=== PATIENT | male | born 1965 | race Caucasian/White ===

== ENCOUNTER 2023-07-18 10:48 | Outpatient (CLI) | payer BC, SELFPAY | END 2023-07-18 10:49 | disposition home or self-care (01) | PROVIDERS: PCP Internal Medicine; Visit Provider Internal Medicine | DX: I71.20 Thoracic aortic aneurysm, without rupture, unspecified (principal); I35.1 Nonrheumatic aortic (valve) insufficiency | CPT/HCPCS: 93306 ==

== ENCOUNTER 2023-11-23 16:32 | Emergency (ER) | payer BC, SELFPAY ==
[2023-11-23 16:59] VITALS: BP 106/73; PULSE 110; RESP 18; TEMP 37.1; O2SAT 94; BMI 30.4
--- NOTE | 2023-11-23 17:39 | CRLHL7_ITS ---
For Patients: As a result of the Century Cures Act, medical imaging exams and procedure reports are released immediately into your electronic medical record. You may view this report before your referring provider. If you have questions, please contact your health care provider. INDICATION: Leg pain and swelling. TECHNIQUE: Ultrasound venous duplex lower left extremity. Compression venous exam was performed using bales-scale, color Doppler, and spectral Doppler analysis. COMPARISON: None. FINDINGS: Deep veins: Acute DVT in 1 of the 2 left peroneal veins. Remaining deep veins are patent. Superficial veins: Greater saphenous vein is fully compressible. Incidental 3.8 centimeter popliteal fossa cyst. IMPRESSION: Acute DVT in one of the two left peroneal veins. Remaining deep veins are patent. Case discussed with Ishmael Fisher at 7:22 p.m. on 11/23/2021. Dictated by Sánchez Jimenez MD @ 11/23/2023 7:23:19 PM (Electronically Signed)
--- NOTE | 2023-11-23 17:41 | ED.GENADULT ---
HPI - General Adult General Chief complaint: Extremity Pain/Injury, Lower Stated complaint: Open Heart Surger Nov 13, Left Leg Pain Time Seen by Provider: 11/23/23 17:32 History of Present Illness HPI narrative: This 58-year-old male comes in with the report of pain in his left lower extremity. He states that the pain is constant. He does not report any injury. He recently had a valve replacement and his heart 10 days ago and had aortic aneurysm repair. He began to feel pain on the medial posterior portion of his left knee in the last day or so. He does not report any shortness of breath. He is currently taking warfarin. Related Data Home Medications Medication Instructions Recorded Confirmed acetaminophen 500 mg capsule 1,000 mg PO Q6H PRN 11/21/23 11/23/23 aspirin 81 mg tablet,delayed 81 mg PO QDAY 11/21/23 11/23/23 release (Adult Aspirin Regimen) metoprolol tartrate 25 mg tablet 25 mg PO BID 11/21/23 11/23/23 Previous Rx's Medication Instructions Recorded warfarin 5 mg tablet 5 mg PO DAILY #60 tabs 11/21/23 oxycodone 5 mg tablet 5 mg PO Q6H #30 tabs 11/22/23 apixaban 5 mg (74 tabs) tablets in See Rx Instructions PO .COMPLEX 11/23/23 a dose pack (Eliquis DVT-PE Treat #74 ea 30D Start) Allergies Allergy/AdvReac Type Severity Reaction Status Date / Time Quinolones Allergy Mild Itching Verified 11/23/23 17:07 ciprofloxacin [From Cipro] Allergy itchy Verified 11/23/23 17:07 Review of Systems Status of ROS: Reports: 10 or more systems reviewed and unremarkable except as noted in History and below Narrative: Constitutional: No fevers, no weight gain or loss. Eyes: No discharge. No vision changes. HENT: No congestion, no sore throat, no ear pain. Cardiovascular: No chest pain, no palpitations. Respiratory: No shortness of breath, no wheezes, no cough. Gastrointestinal: No abdominal pain, no vomiting, no diarrhea. Genitourinary: No dysuria, no hematuria. Musculoskeletal: Normal range of motion. Skin: No rashes, no pruritis. Neurological: No dizziness, weakness, sensory change, speech change. Endo/Heme/Allergies: No bruising or bleeding. No polydipsia. Pysch: no suicidality, no anxiety, no insomnia. All other systems reviewed and are negative. [facility] Medical History (Updated 11/23/23 @ 19:13 by Ishmale Fisher MD) History of kidney stones (2002) ?Z87.442 - Personal history of urinary calculi (ICD-10) Aortic regurgitation ?I35.1 - Nonrheumatic aortic (valve) insufficiency (ICD-10) Thoracic aortic aneurysm ?I71.20 - Thoracic aortic aneurysm, without rupture, unspecified (ICD-10) Surgical History (Updated 11/21/23 @ 16:58 by Arian Krishnan MD) H/O aortic valve replacement ?Z95.2 - Presence of prosthetic heart valve (ICD-10) History of hand surgery (1994) ?Z98.890 - Other specified postprocedural states (ICD-10) Social History Little interest or pleasure in doing things: not at all Feeling down, depressed, or hopeless: not at all Exam Narrative: Exam Narrative: Constitutional: Well-developed, well-nourished, no acute distress. HEENT: Normocephalic, atraumatic. Neck: Normal range of motion. Nontender. Supple. Heart: Regular. No murmurs. Normal rate. Intact distal pulses. Lungs: Clear to auscultation. No chest discomfort. No wheezes, rhonchi, or rales. Abdomen: Normal bowel sounds. Nontender. No rebound tenderness. Genitalia: Deferred. Back: No midline tenderness. Normal range of motion. Extremities: No injury. Diffuse pain in the left leg in the medial aspect of the knee area. No sign of swelling or ecchymosis. Range of motion is intact. Skin: Intact. No rash. Warm. No erythema or pallor. Neurologic: No altered sensation. No weakness. Alert and oriented. Psychiatric: No suicidality. No anxiety or depression. No insomnia. Nursing notes and vitals signs are reviewed. Const: Vital Signs, click to edit/add: Vital Signs - 24 hr 11/23/23 16:59 Temperature 98.7 F Pulse Rate [Right Pulse Oximeter] 110 H Respiratory Rate 18 Blood Pressure [Ri ght Upper Arm] 106/73 Pulse Oximetry 94 Oxygen Delivery Me thod Room Air Course Vital Signs Vital signs: Initial Vital Signs Temperature 98.7 F 11/23/23 16:59 Temperature Source Temporal Artery Scan 11/23/23 16:59 Pulse Rate 110 H 11/23/23 16:59 Pulse Rhythm Regular 11/23/23 16:59 Respiratory Rate 18 11/23/23 16:59 Blood Pressure 106/73 11/23/23 16:59 Blood Pressure Mean 84 11/23/23 16:59 Blood Pressure Position Sitting 11/23/23 16:59 Pulse Oximetry 94 11/23/23 16:59 Oxygen Delivery Method Room Air 11/23/23 16:59 Vital Signs Temperature 98.7 F 11/23/23 16:59 Pulse Rate 110 H 11/23/23 16:59 Respiratory Rate 18 11/23/23 16:59 Blood Pressure 106/73 11/23/23 16:59 Pulse Oximetry 94 11/23/23 16:59 Oxygen Delivery Method Room Air 11/23/23 16:59 Temperature 98.7 F 11/23/23 16:59 Pulse Rate 110 H 11/23/23 16:59 Respiratory Rate 18 11/23/23 16:59 Blood Pressure 106/73 11/23/23 16:59 Pulse Oximetry 94 11/23/23 16:59 Oxygen Delivery Method Room Air 11/23/23 16:59 Medical Decision Making MDM Narrative Medical decision making narrative: This patient comes in reporting some pain in the medial aspect of his left knee. He does not report any particular injury event but did have recent surgery. He has started on Coumadin and was taking 5 mg daily. Two days ago his INR was checked and he was called by the [facility] and instructed to take 10 mg tablets on Tuesdays and Fridays with 5 mg on the other days of the week. This was because his INR returned at 2.2. He has a mechanical heart valve so he was a bit subtherapeutic. Ultrasound of the lower extremity does show evidence of a clot in the left lower leg in 1 of the 2 peroneal veins. He also has a Nicolas cyst that is located more where he is describing pain. The brake operator helper reports that the clot does not look fresh like it was just recently occurring. This patient started Coumadin after having his surgery and it was during this time where was likely that he did develop a clot in his leg. The patient is likely close to therapeutic at this time. An INR is drawn but the patient does not want to wait for results. I advised him to continue with current plans and to follow-up with his cold press loader. I did provide a prescription for Eliquis in case his cold press loader says he should switch to this. The patient does have interest in taking something like this which has less variability in its protective benefit. The patient arrived with heart rate at 110 beats per minute but at the time of my check his heart rate was in normal range at rest at about 70 beats per minute. There is some possibility that he could have pulmonary embolism. I did discuss this possibility with the patient and in a process of shared decision making no further imaging was done seeing that he has normal vital signs without tachycardia or hypoxia. Additionally he is currently taking Coumadin. Discharge Plan Discharge Clinical Impression: Nicolas's cyst of knee, Deep venous thrombosis Patient Disposition: Home, Self-Care Condition: Stable Additional Instructions: Follow-up with primary physician or cold press loader for ongoing management. Continue with Coumadin and recheck INR as scheduled and needed. Prescriptions: New Eliquis DVT-PE Treat 30D Start 5 mg (74 tabs) tablets,dose pack See Rx Instructions PO .COMPLEX Qty: 74 0RF Rx Instructions: orally per package directions No Action metoprolol tartrate 25 mg tablet 25 mg PO BID acetaminophen 500 mg capsule 1,000 mg PO Q6H PRN aspirin [Adult Aspirin Regimen] 81 mg tablet,delayed release (DR/EC) 81 mg PO QDAY warfarin 5 mg tablet 5 mg PO DAILY Qty: 60 0RF Rx Instructions: 5 mg daily except 10 mg on Friday and Friday oxycodone 5 mg tablet 5 mg PO Q6H Qty: 30 0RF Follow Up/Referrals: Gurpreet Telles MD [Primary Care Provider] - Stand Alone Forms: [employer] Info Instructions
[2023-11-23 19:37] LABS: INR 1.79 (0.91-1.10); Prothrombin Time 22.1 Seconds
== END 2023-11-23 19:22 | disposition home or self-care (01) ==
PROVIDERS: Emergency Provider Emergency Medicine Emergency Medical Services; PCP Internal Medicine
DX: I82.402 Acute embolism and thrombosis of unspecified deep veins of left lower extremity (principal); M71.22 Synovial cyst of popliteal space [Baker], left knee
CPT/HCPCS: 36415; 85610; 93971; 99284

== ENCOUNTER 2023-11-25 10:09 | Outpatient (CLI) | payer BC, SELFPAY | END 2023-11-25 10:10 | disposition home or self-care (01) | LOC: NFLDREF 10:11 | PROVIDERS: PCP Internal Medicine; Visit Provider Internal Medicine | DX: I82.409 Acute embolism and thrombosis of unspecified deep veins of unspecified lower extremity (principal) | CPT/HCPCS: 85610 ==

== ENCOUNTER 2024-07-02 11:31 | Outpatient (CLI) | payer BC, SELFPAY ==
--- OUTSIDE RECORDS SUMMARY | 2024-07-04 03:53 | XMS_ITS | Encounter Summary ---
Author Organization [facility] Address [address] [place] [id number] Care Team Providers Care Caretaker Grounds Name Role Phone [facility] Primary Care Provider Encounter Details Date Type Department Care Team (Latest Contact Info) Description 05/14/2024 Travel Social History Tobacco Use Types Packs/Day Years Used Date Smoking Tobacco: Never Assessed Adolescent Education Answer Date Record ed Getting School Help Needed Not on file 05/14 Sex and Gender Information Value Date Recorded Sex Assigned at Not on file Gender Identity Not on file Sexual Orientation Not on file documented as of this encounter Plan of Treatment Not on file documented as of this encounter Visit Diagnoses Not on filedocumented in this encounter Care Teams Caretaker Grounds Relationship Specialty Start Date End Date [facility] [address] [place] [address] PCP - General 05/14/24 documented as of this encounter
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
--- OUTSIDE RECORDS SUMMARY | 2024-07-04 03:53 | XMS_ITS | Encounter Summary ---
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 insertion, Starting on Fri05/14/24 at 2125, Apply at least 30 minutes prior to VAD insertion in divided doses as needed for size of site for insertion. MAX Dose: 2.5 g (?? of 5 g tube) Do NOT give if patient has a history of allergy to any local anesthetic or any nidia product. Do NOT use both lidocaine intradermal/subcutaneous injection and the lidocaine cream on the same site. lidocaine 1 % 0.1-1 mL 0.1-1 mL, Other, EVERY 1 HOUR PRN, mild pain with VAD insertion, Starting on Fri05/14/24 at 6, MAX dose 1 mL subcutaneous OR intradermal along the side of the vein in divided doses as needed for VAD insertion. Do NOT give if patient has a history of allergy to any local anesthetic or any nidia product. Do NOT use both lidocaine intradermal/subcutaneous injection and the lidocaine cream on the same site. morphine (PF) injection 4 mg 4 mg, Intravenous, ONCE, On Fri05/14/24 at 2130, For 1 dose $Given 05/14/2024 9:46 PM CDT 4 mg oxyCODONE-acetaminophen (PERCOCET) 5-325 MG per tablet 1 tablet 1 tablet, Oral, ONCE, On 05/15/24 at 0020, For 1 dose, Maximum acetaminophen dose from all sources= 75 mg/kg/day not to exceed 4 grams $Given 05/15/2024 12:29 AM CDT 1 tablet sodium chloride (PF) 0.9% PF flush 3 mL 3 mL, Intracatheter, EVERY 8 HOURS, First dose on Fri05/14/24 at 2130, to lock peripheral IV dormant line sodium chloride (PF) 0.9% PF flush 3 mL 3 mL, Intracatheter, EVERY 1 MIN PRN, line flush, other, to ensure patency or to lock dormant line, Starting on Fri05/14/24 at 2126 sodium chloride 0.9 % infusion at 125 mL/hr, Intravenous, CONTINUOUS, Administer after the bolus., Starting on Fri05/14/24 at 2230, Until 05/15/24 at 0237 sodium chloride 0.9% BOLUS 1,000 mL Intravenous, 1,000 mL, ONCE, at 1,000 mL/hr, Administer over 1 Hours, On Fri05/14/24 at 2130, For 1 dose $New Bag 05/14/2024 9:50 PM CDT 1,000 mLs 1000 mL/hr documented in this encounter Active and Recently Administered Medications Times are shown in CDT. Scheduled Medication Order 05/13/2024 05/14/2024 05/15/2024 CT scan flush (COMPLETED) Intravenous, 100 mL, ONCE, On Fri05/14/24 at 2320, For 1 dose, This entry is for use by Radiology to intermittently used as a flush in patients receiving a CT scan. 2325 ($Given - Provider: Marina Shay) HYDROmorphone (PF) (DILAUDID) injection 0.5 mg (COMPLETED) 0.5 mg, Intravenous, ONCE, On Fri05/14/24 at 2345, For 1 dose 2347 ($Given - Provider: Kimmie Murillo RN) iopamidol (ISOVUE-370) solution 500 mL (COMPLETED) 500 mL, Intravenous, ONCE, On Fri05/14/24 at 2320, For 1 dose 2325 ($Given - Provider: Marina Shay) morphine (PF) injection 4 mg (COMPLETED) 4 mg, Intravenous, ONCE, On Fri05/14/24 at 2130, For 1 dose 2145 ($Given - Provider: Rhonda Lees RN) oxyCODONE-acetaminophen (PERCOCET) 5-325 MG per tablet 1 tablet (COMPLETED) 1 tablet, Oral, ONCE, On 05/15/24 at 0020, For 1 dose, Maximum acetaminophen dose from all sources= 75 mg/kg/day not to exceed 4 grams 0029 ($Given - Provider: Kimmie Murillo RN) sodium chloride (PF) 0.9% PF flush 3 mL 3 mL, Intracatheter, EVERY 8 HOURS, First dose on Fri05/14/24 at 2130, to lock peripheral IV dormant line 2203 (Canceled Entry - Provider: Kimmie Murillo RN) sodium chloride 0.9% BOLUS 1,000 mL (COMPLETED)(Linked Group 1) Intravenous, 1,000 mL, ONCE, at 1,000 mL/hr, Administer over 1 Hours, On Fri05/14/24 at 2130, For 1 dose 2149 ($New Bag - Provider: Rhonda Lees RN)2350 (Stopped - Provider: Kimmie Murillo RN) Continuous Medication Order 05/13/2024 05/14/2024 05/15/2024 sodium chloride 0.9 % infusion(Linked Group 1) at 125 mL/hr, Intravenous, CONTINUOUS, Administer after the bolus., Starting on Fri05/14/24 at 2230, Until 05/15/24 at 0237 0021 (Not Given - Pr ovider: Kimmie Murillo RN - Reason: Other) PRN Medication Order 05/13/2024 05/14/2024 05/15/2024 lidocaine (LMX4) cream Topical, EVERY 1 HOUR PRN, pain, with VAD insertion, Starting on Fri05/14/24 at 2126, Apply at least 30 minutes prior to VAD insertion in divided doses as needed for size of site for insertion. MAX Dose: 2.5 g (?? of 5 g tube) Do NOT give if patient has a history of allergy to any local anesthetic or any nidia product. Do NOT use both lidocaine intradermal/subcutaneous injection and the lidocaine cream on the same site. lidocaine 1 % 0.1-1 mL 0.1-1 mL, Other, EVERY 1 HOUR PRN, mild pain with VAD insertion, Starting on Fri05/14/24 at 2126, MAX dose 1 mL subcutaneous OR intradermal along the side of the vein in divided doses as needed for VAD insertion. Do NOT give if patient has a history of allergy to any local anesthetic or any nidia product. Do NOT use both lidocaine intradermal/subcutaneous injection and the lidocaine cream on the same site. sodium chloride (PF) 0.9% PF flush 3 mL 3 mL, Intracatheter, EVERY 1 MIN PRN, line flush, other, to ensure patency or to lock dormant line, Starting on Fri05/14/24 at 2126 Linked Groups Order Group 1: sodium chloride 0.9% BOLUS 1,000 mL (COMPLETED)Jump to med Intravenous, 1,000 mL, ONCE, at 1,000 mL/hr, Administer over 1 Hours, On Fri05/14/24 at 2130, For 1 dose Followed by sodium chloride 0.9 % infusionJump to med at 125 mL/hr, Intravenous, CONTINUOUS, Administer after the bolus., Starting on Fri05/14/24 at 2230, Until 05/15/24 at 0237 documented in this encounter Care Teams Teacher Of The Sight Impaired Relationship Specialty Start Date End Date [facility] [address] [place] [address] PCP - General 05/14/24 documented as of this encounter
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
--- OUTSIDE RECORDS SUMMARY | 2024-07-04 03:54 | XMS_ITS | Clinical Summary ---
Author [facility] Address [address] [place] [address] Care Team Providers Care Bone Density Technician Name Role Phone Needs Pcp, Assignment Primary Care Provider [phone] Source Comments You are receiving this document as you are listed as the primary care provider,follow-up provider, or the patient has been referred to you for consultation.This is in compliance with the Medicare and[facility] Hospitalca[facility] EHR Incentive Program,which states Providers who transition their patient to another setting of careor provider of care or refers their patient to another provider of care shouldprovide summary care record for each transition of care or referral. [employer] Allergies Active Allergy Reactions Criticality Noted Date Comments Ciprofloxacin Itching 06/12/2023 Medications Medication Sig Dispensed Refills Start Date End Date Status cyclobenzaprine (FLEXERIL) 10 MG tablet Take 1 Tablet (10 mg) by mouth three times a day as needed for Muscle Spasms. 10 Tablet 06/12/2023 Active Active Problems Problem Noted Date Diagnosed Date Aneurysm of ascending aorta without rupture 05/15 Social History Tobacco Use Types Packs/Day Years Used Date Smoking Tobacco: Never Assessed Sex and Gender Information Value Date Recorded Sex Assigned at Not on file Gender Identity Not on file Sexual Orientation Not on file Last Filed Vital Signs Vital Sign Reading Time Taken Comments Blood Pressure 156/80 06/12/2023 5:53 PM CDT Pulse 71 06/12/2023 5:53 PM CDT Temperature 36.6 ??C (97.9 ??F) 06/12/2023 5:53 PM CD T Respiratory Rate 20 06/12/2023 5:53 PM CDT Oxygen Saturation 99% 06/12/2023 5:53 PM CDT Inhaled Oxygen Concentration - - Weight - - Height - - Body Mass Index - - Plan of Treatment Health Maintenance Due Date Last Done Comments Colon Cancer Screening Plan Due 1965 Hep C Screening (Preventive Services) 1965 PSA Screening Discussion 1963 HIV Screening (Preventive Services) 1979 Adult Preventive Visit 1981 Cholesterol 1998 Zoster/Shingles (1 of 2) 2013 DTaP/Tdap/Td (2 - Tdap) 11/01/2020 11/01/2010 COVID-19 Vaccine ( - 2023-2 5 season) 2024 Influenza (#1) 2024 RSV (1 - 1-dose 75+ series) 2038 HepA Aged Out No longer eligi ble based on patient's age to complete this topic HepB Aged Out No longer eligi ble based on patient's age to complete this topic Hib Aged Out No longer eligi ble based on patient's age to complete this topic IPV (Polio) Aged Out No longer eligi ble based on patient's age to complete this topic MCV4 Aged Out No longer eligi ble based on patient's age to complete this topic Pneumococcal Aged Out No longer eligi ble based on patient's age to complete this topic Care Teams Bone Density Technician Relationship Specialty Start Date End [place] [address] PCP - General 03/18/24
--- OUTSIDE RECORDS SUMMARY | 2024-07-04 03:54 | XMS_ITS | Clinical Summary ---
Author Organization [facility] Address [place], [place] [address] Care Team Providers Care Musculoskeletal Physician Name Role Phone Gurpreet Telles MD Primary Care Provider [phone] Allergies Active Allergy Reactions Criticality Noted Date Comments Ciprofloxacin Itching Medications Medication Sig Dispensed Refills Start Date End Date Status metoprolol tartrate (LOPRESSOR) 25 mg tabletIndications: S/P AVR Take 1 Tablet (25 mg) by mouth two times daily. 80 Tablet 1 11/19/2023 Active oxyCODONE (ROXICODONE) 5 mg immediate release tabletIndications: S/P AVR Take 1 Tablet (5 mg) by mouth every 6 hours if needed for Pain (For Moderate Pain.). 15 Tablet 11/19/2023 Active warfarin (COUMADIN) 5 mg tabletIndications: S/P AVR Take 1 tablet (5mg) by mouth in the evening on 11/19 and 11/20. Have your INR blood test on 11/21 with future warfarin refills and INR monitoring per your primary care provider. 5 Tablet 11/19/2023 Active acetaminophen (TYLENOL EXTRA STRGTH) 500 mg tabletIndications: S/P AVR Take 2 Tablets (1,000 mg) by mouth every 6 hours if needed for Pain. Max acetaminophen dose: 4000mg in 24 hrs. 11/19/2023 Active aspirin chewable 81 mg chewable tabletIndications: S/P AVR Take 1 Tablet (81 mg) by mouth or nasogastric tube once daily. 11/20/2023 Active Active Problems Problem Noted Date Diagnosed Date S/P AVR 11/13/2023 Overview (11/13/2023): Aortic valve- Valve Aortic 27/29mm On-x W/Valsalva Vascutek Gelweave Graft Tendinopathy of right rotator cuff 11/21/2015 Pain of right scapula following traction injury 11/21/2015 C7-T1 facet arthropathy with synovitis 6 Hyperplastic colon polyp 2015 Overview (2015): Colonoscopy 04/2015 polyp repeat in 10 years Immunizations Name Administration Dates Next Due Measles 02/19/1977 Tdap 11/01/2010 Family History Medical History Relation Name Comments Cancer-colon Neg. Diabetes Neg. Heart Disease Neg. Cancer-prostate Paternal Uncle Age uncert ain Relation Name Status Comments Neg. Paternal Uncle Social History Tobacco Use Types Packs/Day Years Used Date Smoking Tobacco: Former Smokeless Tobacco: Never Tobacco Cessation:Counseling Given: Not Answered Comments:using nicotine gum now. Alcohol Use Standard Drinks/Week Comments Yes 2 (1 standard drink = 0.6 oz pur e alcohol) PHQ-2 Answer Date Recorded PHQ-2 TOTAL SCORE 0 12/09/2023 Social Connections Answer Date Recorded Frequency of Communication with Friends and Fami ly Not on file 07/25/2023 Alcohol Use Answer Date Recorded How often do you have a drink containing alcohol ? 2 11/07/2023 How many drinks containing a lcohol do you have on a typical day when you are drinking? 0 11/07/2023 How often do you have five or more drinks on one occasion? 0 11/07/2023 Sex and Gender Information Value Date Recorded Sex Assigned at Not on file Gender Identity Not on file Sexual Orientation Not on file Obstetrics History Last Filed Vital Signs Vital Sign Reading Time Taken Comments Blood Pressure 132/78 01/30/2024 3:01 PM CDT Pulse 78 01/30/2024 3:01 PM CDT Temperature 36.6 ??C (97.8 ??F) 11/19/2023 1:00 PM CS T Respiratory Rate 20 12/09/2023 2:00 PM ROENTGENOLOGIST Oxygen Saturation 96% 01/30/2024 3:01 PM CDT Inhaled Oxygen Concentration - - Weight 96.6 kg (213 lb) 01/30/2024 3:01 PM CDT Height 175.3 cm (5' 9.02) 01/30/2024 3:01 PM CD T Body Mass Index 31.44 01/30/2024 3:01 PM CDT Plan of Treatment Health Maintenance Due Date Last Done Comments HIV for age 15-65 1978 Hepatitis C screening for ag e 18-79 1981 Zoster (shingles) series for age 50+ (1 of 2) 2013 Lipids for age 45-75 05/02/2020 05/02/2015 Tetanus booster 11/01/2020 11/01/2010 COVID-19 vaccine series ( - 2022- season) 2024 Influenza for age 50-64 06/13/2024 Depression screening for age 12+ 12/11/2024 12/12/2023, 12/09/2023 BMI (ht and wt on same day) for age 18+ 01/29/2025 01/30/2024, 11/07/2023, 10/14/2023 Colonoscopy through age 75 05/03/2025 05/03/2015 Tdap Completed 11/01/2010 Pneumococcal series for age 6-64 Aged Out No longer eligible b ased on patient's age to complete this topic Medical Devices Implanted Type Area Medical Biller Device Identifier Shelf Expiration Date Model / Serial / Lot Valve Aortic 27/29mm On-X W/Valsalva Vascutek Gelweave Graft - [id number] Implanted:Qty: 1 on 11/13/2023 by Azar Perry MD at [facility] N/A: Aorta [employer] 11/13/2025 ONXAAP- / [id number] Procedures Procedure Name Priority Date/Time Associated Diagnosis Comments LIPID PANEL W REFLEX MEASURED LDL Routine 05/02/2015 12:10 PM CDT Lipid screening from Last 3 Months or Most Recently Relevant to Health Maintenance Results * (ABNORMAL) LIPID PANEL W REFLEX MEASURED LDL (05/02/2015 12:10 PM CDT) CHOLESTEROL,TOTAL 229(H) 100 - 199 mg/dL 05/02/2015 12:[address] [facility] TRIGLYCERIDES 107 <150 mg/dL 05/02/2015 12:[address] [facility] HDL CHOLESTEROL 67 >40 mg/dL 05/02/2015 12:[address] [facility] NON-HDL CHOLESTEROL 162(H) <145 mg/dl 05/02/2015 12:[address] [facility] CHOL/HDL RATIO 3.42 <4.50 05/02/2015 12:[address] [facility] LDL CHOLESTEROL 141(H) <=130 mg/dL 05/02/2015 12:[address] [facility] PATIENT STATUS FASTING 05/02/2015 12:[address] [facility] Blood specimen (specimen) BLOOD SPECIMEN / Unknown Venipuncture / Unknown 05/02/2015 12:10 PM CDT 05/02/2015 12:10 PM CDT Alec Lau MD CHEMISTRY [facility] [address] [facility] [place] [address], from Last 3 Months or Most Recently Relevant to Health Maintenance Advance Directives * Full Code (Latest Code Status on File) Date Activated Date Inactivated Comments 11/13/2023 10:13 AM 11/19/2023 7:33 PM Question Answer Comments Code Status Discussion: Unable to Assess Preferences, Provider to review later Care Teams Musculoskeletal Physician Relationship Specialty Start Date End Date Gurpreet Telles MD [address] [place] [address] PCP - General Internal Medicine 11/07/23
== END 2024-07-02 11:32 | disposition home or self-care (01) ==
LOC: NFLDREF 07-04 03:52
PROVIDERS: PCP Internal Medicine; Referring Provider Internal Medicine; Visit Provider Internal Medicine
DX: Z95.2 Presence of prosthetic heart valve (principal)
CPT/HCPCS: 85610

== ENCOUNTER 2024-07-13 12:46 | Outpatient (CLI) | payer OTHER, BC, SELFPAY ==
--- OUTSIDE RECORDS SUMMARY | 2024-07-13 12:52 | XMS_ITS | Encounter Summary ---
Author Organization [facility] Address [address] [place] [address] Care Team Providers Care Puff Ironer Name Role Phone [facility], [facility] Primary Care Provider Encounter Details Date [...] on filedocumented in this encounter Care Teams Puff Ironer Relationship Specialty Start Date End Date [facility] [address] [place] [address] PCP - General 05/14/24 documented as of this encounter
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
--- OUTSIDE RECORDS SUMMARY | 2024-07-13 12:52 | XMS_ITS | Clinical Summary ---
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 Saturation 96% 01/30/2024 3:01 PM CDT [...] booster 11/01/2020 11/01/2010 COVID-19 vaccine series ( season) 2024 Influenza for age 50-64 06/13/2024 Depression screening for age 12+ 12/11/2024 12/12/2023, 12/09/2023 BMI (ht and wt on same day) for age 18+ 01/29/2025 01/30/2024, 11/07/2023, 10/14/2023 Colonoscopy through age 75 05/03/2025 05/03/2015 Tdap Completed 11/01/2010 Pneumococcal series for age 6-64 Aged Out No longer eligible b ased on patient's age to complete this topic Medical Devices Implanted Type Area Lever Miller Device Identifier Shelf Expiration Date Model / Serial / Lot Valve Aortic 27/29mm On-X W/Valsalva Vascutek Gelweave Graft - [id number] Implanted:Qty: 1 on 11/13/2023 by Azar Perry MD at [facility] N/A: Aorta [employer] 11/13/2025 ONXAAP- [id number] Procedures Procedure Name Priority Date/Time Associated Diagnosis Comments LIPID PANEL W REFLEX MEASURED LDL Routine 05/02/2015 12:10 PM CDT Lipid screening from Last 3 Months or Most Recently Relevant to Health Maintenance Results * (ABNORMAL) LIPID PANEL W REFLEX MEASURED LDL (05/02/2015 12:10 PM CDT) CHOLESTEROL,TOTAL 229(H) 100 - 199 mg/dL 05/02/2015 12:47 PM CDT [facility] TRIGLYCERIDES 107 <150 mg/dL 05/02/2015 12:47 PM CDT [facility] HDL CHOLESTEROL 67 >40 mg/dL 05/02/2015 12:47 PM CDT [facility] NON-HDL CHOLESTEROL 162(H) <145 mg/dl 05/02/2015 12:47 PM CDT [facility] CHOL/HDL RATIO 3.42 <4.50 05/02/2015 12:47 PM CDT [facility] LDL CHOLESTEROL 141(H) <=130 mg/dL 05/02/2015 12:47 PM CDT [facility] PATIENT STATUS FASTING 05/02/2015 12:47 PM CDT [facility] Blood specimen (specimen) BLOOD SPECIMEN / Unknown Venipuncture / Unknown 05/02/2015 12:10 PM CDT 05/02/2015 12:10 PM CDT Alec Lau MD CHEMISTRY [facility] [address] [place] [address], from Last 3 Months or Most Recently Relevant to Health Maintenance Advance Directives * Full Code (Latest Code Status on File) Date Activated Date Inactivated Comments 11/13/2023 10:13 AM 11/19/2023 7:33 PM Question Answer Comments Code Status Discussion: Unable to Assess Preferences, Provider to review later Care Teams Historiography Teacher Relationship Specialty Start Date End Date Gurpreet Telles MD [address] [facility] [place] [address] PCP - General Internal Medicine 11/07/23
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
--- OUTSIDE RECORDS SUMMARY | 2024-07-13 12:52 | XMS_ITS | Clinical Summary ---
Author Organization [facility] Address [address] [place] [address] Care Team Providers Care Petrophysical Engineer Name Role Phone Needs Pcp, Assignment Primary Care Provider [phone] Source Comments You are receiving this document as you are listed as the primary care provider,follow-up provider, or the patient has been referred to you for consultation.This is in compliance with the Medicare and[facility] Hospitalca[facility] EHR Incentive Program,which states Providers who transition their patient to another setting of careor provider of care or refers their patient to another provider of care shouldprovide summary care record for each transition of care or referral. [employer] Allergies Active Allergy Reactions Criticality Noted Date [...] age to complete this topic Care Teams Petrophysical Engineer Relationship Specialty Start Date End Date [place] [address] PCP - General 03/18/24
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
== END 2024-07-13 12:47 | disposition home or self-care (01) ==
LOC: CT 12:47
PROVIDERS: PCP Internal Medicine; Visit Provider Internal Medicine
DX: R07.89 Other chest pain (principal); V89.2XXA Person injured in unspecified motor-vehicle accident, traffic, initial encounter
CPT/HCPCS: 71250

== ENCOUNTER 2024-10-17 22:39 | Emergency (ER) | payer BC, SELFPAY ==
[2024-10-17] VITALS (10 sets, daily range): BP systolic 112–151; BP diastolic 76–96; PULSE 94–103; RESP 20; TEMP 36.7; O2SAT 94–98; BMI 31.7
--- OUTSIDE RECORDS SUMMARY | 2024-10-17 22:42 | XMS_ITS | Clinical Summary ---
Author Organization [facility] Address [address] [place] [id number] Care Team Providers Care Cistern Room Working Supervisor Name Role Phone [facility], [facility] Primary Care Provider Allergies Active Allergy Reactions Criticality Noted Date Comments Ciprofloxacin Itching 05/14/2024 Medications oxyCODONE-acetam inophen (PERCOCET) 5-325 MG tablet Take 1 tablet by mouth every 6 hours as needed for severe pain 8 tablet 05/15/2024 Active Social History Tobacco Use Types Packs/Day Years Used Date Smoking Tobacco: Never Assessed Adolescent Education Answer Date Record ed Getting School Help Needed Not on file 05/14 Sex and Gender Information Value Date Recorded Sex Assigned at Not on file Legal Sex Male 4:58 AM [employer] Gender Identity Not on file Sexual Orientation Not on file Last Filed Vital Signs Vital Sign Reading Time Taken Comments Blood Pressure 133/85 05/15/2024 12:15 AM CDT Pulse 83 05/15/2024 12:00 AM CDT Temperature 36.4 C (97.5 F) 05/14/2024 8:37 PM CDT Respiratory Rate 22 05/14/2024 8:37 PM CDT [...] COLONOGRAPHY 1963 FIT 1963 FLEX SIG 1963 sDNA (Cologuard) 1963 YEARLY PREVENTIVE VISIT 1966 COLONOSCOPY 1973 COLORECTAL CANCER SCREENING 1973 HIV SCREENING 1978 HEPATITIS C SCREENING 1981 LIPID 2003 Pneumococcal Vaccine: 50+ Years (1 of 1 - PCV) 2013 ZOSTER IMMUNIZATION (2 of 2) 03/02/2024 01/06/2024 COVID-19 Vaccine (1 - 2023-2 5 season) 2024 INFLUENZA VACCINE (#1) 2024 PHQ-2 (once per calendar year) 2024 GLUCOSE 05/14/2027 05/14/2024 DTAP/TDAP/TD IMMUNIZATION (3 [...] Procedure Name Priority Date/Time Associated Diagnosis Comments COMPREHENSIVE METABOLIC PANEL STAT 05/14/2024 8:47 PM CDT from Last 3 Months or Most Recently Relevant to Health Maintenance Results * (ABNORMAL) Comprehensive metabolic panel (05/14/2024 8:47 [...] 9:54 PM CDT [facility] Comment:eGFR calculated 2020 CKD-EPI equation. Calcium 9.1 8.8 - [...] 8:47 PM CDT 05/14/2024 8:50 PM CDT us Jeremy Obando MD LAB - BLOOD ORDERABLES F inal Result [facility] [address] [facility] floor, no room number) [place] [address], [facility] from Last 3 Months or Most Recently Relevant to Health Maintenance [place] Care Teams Cistern Room Working Supervisor Relationship Specialty Start Date End Date Clinic, [facility] [address] [place] [address] PCP - General 05/14/24
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
--- OUTSIDE RECORDS SUMMARY | 2024-10-17 22:42 | XMS_ITS | Clinical Summary ---
Author Organization [facility] Address [address] [place] [address] Care Team Providers Care Manufacturers Agent Name Role Phone Needs Pcp, Assignment Primary Care Provider [phone] Source Comments You are receiving this document as you are listed as the primary care provider,follow-up provider, or the patient has been referred to you for consultation.This is in compliance with the Medicare and[facility] EHR Incentive Program,which states Providers who transition their patient to another setting of careor provider of care or refers their patient to another provider of care shouldprovide summary care record for each transition of care or referral. [employer] Allergies Active Allergy Reactions Criticality Noted Date [...] 71 06/12/2023 5:53 PM CDT Temperature 36.6 C (97.9 F) 06/12/2023 5:53 PM CDT Respiratory Rate 20 06/12/2023 5:53 PM CDT [...] age to complete this topic Care Teams Manufacturers Agent Relationship Specialty Start Date End Date Needs Pcp, [facility] [place] [address] PCP - General 03/18/24
--- OUTSIDE RECORDS SUMMARY | 2024-10-17 22:42 | XMS_ITS | Clinical Summary ---
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 Blood BLOOD SPECIMEN / Unknown Venipuncture / Unknown 10/11/2024 11:20 AM KILN OPERATOR 10/11/2024 11:40 AM KILN OPERATOR us Chen Novak NP CHEMISTRY Final Result [facility] [address] [place] [address], * SCAN-CARDIAC STRIP (10/11/2024 12:00 AM KILN OPERATOR) Narrative 10/11/2024 12:00 AM KILN OPERATOR Ordered by an unspecified provider. Other Clinical Staff OTHER Final Resul t * (ABNORMAL) LIPID PANEL W REFLEX MEASURED LDL (05/02/2015 12:10 PM CDT) CHOLESTEROL,TOTAL 229(H) 100 - 199 mg/dL 05/02/2015 12:47 PM CDT [facility] TRIGLYCERIDES 107 <150 mg/dL 05/02/2015 12:47 PM CDT [facility] HDL CHOLESTEROL 67 >40 mg/dL 05/02/2015 12:47 PM CDT [facility] NON-HDL CHOLESTEROL 162(H) <145 mg/dl 05/02/2015 12:47 PM CDT [facility] CHOL/HDL RATIO 3.42 <4.50 05/02/2015 12:47 PM CDT [facility] LDL CHOLESTEROL 141(H) <=130 mg/dL 05/02/2015 12:47 PM CDT [facility] PATIENT STATUS FASTING 05/02/2015 12:47 PM CDT [facility] Blood specimen (specimen) BLOOD SPECIMEN / Unknown Venipuncture / Unknown 05/02/2015 12:10 PM CDT 05/02/2015 12:10 PM CDT Alec Lau MD CHEMISTRY Final Result [facility] [address] [place] [address], [place] [phone] from Last 3 Months or Most Recently Relevant to Health Maintenance Insurance [facility] MOTOR VEHICLE INS [facility] [employer] INS [facility] Advance Directives * Full Code (Latest Code Status on File) Date Activated Date Inactivated Comments 10/11/2024 11:14 AM 10/13/2024 7:49 PM Question Answer Comments Code Status Discussion: Unable to Assess Preferences, Provider to review later * Full Code Date Activated Date Inactivated Comments 11/13/2023 10:13 AM 11/19/2023 7:33 PM Question Answer Comments Code Status Discussion: Unable to Assess Preferences, Provider to review later Care Teams Heating Unit Installer Relationship Specialty Start Date End Date Gurpreet Telles MD [address] [facility] [place] [address] PCP - General Internal Medicine 11/07/23
--- OUTSIDE RECORDS SUMMARY | 2024-10-17 22:42 | XMS_ITS | Referral Summary ---
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
--- NOTE | 2024-10-17 22:57 | CRLHL7_ITS ---
For Patients: As a result of the Century Cures Act, medical imaging exams and procedure reports are released immediately into your electronic medical record. You may view this report before your referring provider. If you have questions, please contact your health care provider. INDICATION: chest pain/swelling after plates for sternal fx. TECHNIQUE: Chest 1 view. COMPARISON: August 24, 2021. FINDINGS: Cardiovascular and mediastinum: Cardiomediastinal silhouette is stable. Lungs and pleural spaces: Elevation of the left hemidiaphragm, similar to prior. Left lower lung zone linear opacities likely atelectasis. Possible left-sided pleural effusion. No pneumothorax identified. Bones and soft tissues: Sternotomy fixation hardware.. IMPRESSION: Interval placement of sternal fixation hardware. Otherwise, no significant interval change. Dictated by Allegra Chacon MD @ 10/17/2024 11:55:40 PM (Electronically Signed)
[2024-10-17 23:03] LABS: HCO3 VBG 25 mmol/L (21-28); PCO2 VBG 36 mmHG (40-50); PO2 VBG 51.8 mmHG (25-47); pH VBG 7.447 (7.32-7.43)
--- NOTE | 2024-10-17 23:05 | CRLHL7_ITS ---
For Patients: As a result of the Century Cures Act, medical imaging exams and procedure reports are released immediately into your electronic medical record. You may view this report before your referring provider. If you have questions, please contact your health care provider. Indication: Severe right chest pain/swelling after sternal plate, Coumadin Technique: CT of the chest following 75 mL Isovue 370 IV contrast. Comparison: CT chest performed 07/13/2024 Findings: Lungs: Mild atelectasis and/or scarring. Mediastinum: No acute abnormality appreciated. Postoperative changes noted again. No evidence of extension of hematoma into the mediastinum. Lymph nodes: No gross lymphadenopathy. Upper abdomen: No acute abnormality appreciated. Soft tissues: There is a large hematoma with a fluid fluid level along the chest wall abutting the sternum. This hematoma measures 25.4 x 16.0 x 6.4 centimeters. Allowing for streak artifact obscuring portions of the anatomy, there is no convincing evidence of active contrast extravasation on this study. Trace gas likely postsurgical. Bones: Median sternotomy plates and wires. Impression: Median sternotomy plates and wires present. There is a massive hematoma with a fluid fluid level measuring over 25 centimeters along the anterior chest wall abutting the sternal plate. There is no evidence of extension of this hematoma into the mediastinum or pleural space. Allowing for areas of streak artifact obscuring portions of the anatomy, there is no visualized active extravasation of contrast into the hematoma. Please note that all CT scans at this facility use dose modulation, iterative reconstruction, and/or weight-based dosing when appropriate to reduce radiation dose to as low as reasonably achievable. Dictated by Enoch Jarrett MD @ 10/18/2024 12:21:38 AM (Electronically Signed)
[2024-10-17 23:06] LABS: Basophils Percent Auto 0.1 % (0.0-3.0); Hematocrit 28.1 % (37.0-53.0); Hemoglobin* 9.3 gm/dL (13.5-17.5); Immature Granulocytes Pct Auto 0.9 %; Lymphocytes Percent Auto 3.2 % (20-44); Mean Corpuscular HGB Conc 33 gm/dL (32-36); Mean Corpuscular Hemoglobin 30 pg (26-34); Mean Corpuscular Volume 91 fL (80-100); Monocytes Percent Auto 7.4 % (0.0-11.0); Neutrophils Percent Auto 88.4 % (42.0-72.0); Platelet Count* 337 K/uL (140-440); RDW Coefficient of Variation % 13.8 % (11.5-15.5); White Blood Count* 17.04 K/uL (4.50-11.00)
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
[2024-10-17] MEDS: ONDANSETRON 2 MG/ML inj 4 MG IVP (23:08)
[2024-10-17] MEDS: 0.9 % SODIUM CHLORIDE 1000 ml 1,000 ML 500 ML IV (23:08)
[2024-10-17] MEDS: MORPHINE 4 MG/ML INJ IVP (23:08)
[2024-10-17 23:09] LABS: Slide Review Reflex No
[2024-10-17 23:13] LABS: Creatinine, Point-of-Care* 0.8 mg/dl (0.6-1.3)
[2024-10-17 23:19] LABS: Albumin* 3.7 g/dL (3.3-5.0); Chloride* 98 mmol/L (96-114)
[2024-10-17 23:20] LABS: Potassium* 3.4 mmol/L (3.6-5.1); Sodium* 131 mmol/L (135-149)
[2024-10-17] MEDS: HYDROmorphone 0.5 mg/0.5 ml inj IVP (23:21)
--- OUTSIDE RECORDS SUMMARY | 2024-10-17 23:21 | XMS_ITS | Continuity of Care Document ---
Author Name NwJULISSAN User Talib[place]-a llowed Address Unknown Organization Unknown Address Unknown Procedures FILTER APPLIED:Only known Procedures with Onset Date within the last 5 years Procedure Date Procedure Provider Additiona l Information Status CBC W PLT NO DIFF (14790) Completed BASIC METABOLIC PANEL (72638) Completed PROTHROMBIN TIME (02260) Completed EXTREMITY STUDY (98536) Completed ROUTINE VENIPUNCTURE (46067) Completed PROTHROMBIN TIME (69005) Completed EMERGENCY DEPT VISIT MOD MDM (48261) Completed TTE W/DOPPLER COMPLETE (56690) Completed CREATININE / GFR (67723) Completed Encounters FILTER APPLIED:Only known Encounters with Admission Date within the last 5 years Encounter Location Admission Discharge Billing Code 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
--- OUTSIDE RECORDS SUMMARY | 2024-10-17 23:21 | XMS_ITS | Clinical Summary ---
Author Organization [employer] Address [address] [place] [address] Care Team Providers Care Wall Attendant Name Role Phone Needs Pcp, Assignment Primary Care Provider [phone] Source Comments You are receiving this document as you are listed as the primary care provider,follow-up provider, or the patient has been referred to you for consultation.This is in compliance with the Medicare and[employer] EHR Incentive Program,which states Providers who transition their patient to another setting of careor provider of care or refers their patient to another provider of care shouldprovide summary care record for each transition of care or referral. Dualog Allergies Active Allergy Reactions Criticality Noted Date [...] age to complete this topic Care Teams Wall Attendant Relationship Specialty Start Date End Date Needs Pcp, Navid [facility] [place] [address] PCP - General 03/18/24
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
--- OUTSIDE RECORDS SUMMARY | 2024-10-17 23:21 | XMS_ITS | Referral Summary ---
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
--- OUTSIDE RECORDS SUMMARY | 2024-10-17 23:21 | XMS_ITS | Clinical Summary ---
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
[2024-10-17 23:22] LABS: Bilirubin Total* 1.2 mg/dL (0.1-1.5); Creatinine* 0.6 mg/dL (0.5-1.5); Est. Creatinine Clearance* 77.57; Estimated Glomerular Filt Rate 110 ml/min
[2024-10-17 23:23] LABS: Alanine Aminotransferase* 24 U/L (4-50); Alkaline Phosphatase* 85 U/L (40-150); Anion Gap 8 mEq/L (7-15); Aspartate Amino Transferase* 29 U/L (12-35); Blood Urea Nitrogen* 15 mg/dL (7-30); Calcium* 8.6 mg/dL (8.4-10.6); Carbon Dioxide* 25 mmol/L (20-32); Glucose* 208 mg/dL (60-115); Total Protein* 6.4 g/dL (6.0-8.3)
[2024-10-17 23:25] LABS: INR 1.62 (0.91-1.10); Prothrombin Time 20.3 Seconds
[2024-10-17 23:37] LABS: C Reactive Protein* 18.7 mg/dL (0.5-1.0)
[2024-10-18] VITALS (9 sets, daily range): BP systolic 122–142; BP diastolic 86–97; PULSE 91–101; RESP 16; O2SAT 88–96
[2024-10-18] MEDS: HYDROmorphone 0.5 mg/0.5 ml inj IVP ×2 (00:14→01:48)
== END 2024-10-18 01:54 | disposition home or self-care (01) ==
PROVIDERS: Family Medicine; Emergency Provider Family Medicine; PCP Internal Medicine
DX: D62 Acute posthemorrhagic anemia (principal); S20.211A Contusion of right front wall of thorax, initial encounter; Z79.01 Long term (current) use of anticoagulants; Z95.2 Presence of prosthetic heart valve
CPT/HCPCS: 36415; 71045; 71260; 80053; 82565; 82803; 85018; 85025; 85610; 86140; 86850; 86900; 86901; 94761; 96374; 96375; 99285; 99291; J1171; J2270; J2405; J7030; Q9967

== ENCOUNTER 2024-10-18 01:42 | Outpatient (CLI) | payer BC, SELFPAY | END 2024-10-18 01:43 | disposition home or self-care (01) | LOC: AMB 11-03 06:58 | PROVIDERS: PCP Internal Medicine; Visit Provider Family Medicine | DX: R22.2 Localized swelling, mass and lump, trunk (principal) | CPT/HCPCS: A0425; A0427 ==

== ENCOUNTER 2024-11-03 10:24 | Outpatient (CLI) | payer OTHER, BC, SELFPAY | END 2024-11-03 10:25 | disposition home or self-care (01) | LOC: NFLDREF 10:24 | PROVIDERS: PCP Internal Medicine; Visit Provider Internal Medicine | DX: S22.20XA Unspecified fracture of sternum, initial encounter for closed fracture (principal) | CPT/HCPCS: 85610 ==

== ENCOUNTER 2024-12-03 16:22 | Outpatient (CLI) | payer BC, SELFPAY ==
--- NOTE | 2024-12-03 16:45 | CRLHL7_ITS ---
For Patients: As a result of the Century Cures Act, medical imaging exams and procedure reports are released immediately into your electronic medical record. You may view this report before your referring provider. If you have questions, please contact your health care provider. INDICATION: Sternal hematoma. TECHNIQUE: Noncontrast CT images of the chest. COMPARISON: CT chest 10/17/2024. FINDINGS: No focal consolidation, pleural effusion, or pneumothorax. Minimal paraseptal emphysema right apex. No pulmonary nodules. The heart size is normal. Trace pericardial effusion. Coronary atherosclerotic calcifications. Prosthetic aortic valve. No mediastinal or hilar lymphadenopathy. Stable multiple hepatic cysts. Interval resolution of ventral chest wall hematoma. Sternotomy. Multilevel thoracic spondylosis. No aggressive osseous lesions. IMPRESSION: 1. Interval resolution of ventral chest wall hematoma. 2. No acute abnormality in the chest. Please note that all CT scans at this facility use dose modulation, iterative reconstruction, and/or weight-based dosing when appropriate to reduce radiation dose to as low as reasonably achievable. Dictated by Jacinto Hernandez MD @ 12/04/2024 4:55:50 PM (Electronically Signed)
== END 2024-12-03 16:23 | disposition home or self-care (01) ==
LOC: CT 16:23
PROVIDERS: PCP Internal Medicine; Visit Provider Internal Medicine
DX: S22.20XA Unspecified fracture of sternum, initial encounter for closed fracture (principal); I25.10 Atherosclerotic heart disease of native coronary artery without angina pectoris; K76.89 Other specified diseases of liver
CPT/HCPCS: 71250